=== PATIENT | male | born 1995 | race Two or more races ===

== ENCOUNTER 2019-11-18 23:02 | Emergency (ER) | payer MEDICAID ==
[~2019-11-18] VITALS: Ht 190.5 cm; Wt 74.8 kg
[2019-11-19 00:22] VITALS: BP 125/73
== END 2019-11-19 01:39 | disposition home or self-care (01) ==
LOC: ER 23:02 → EDBD 23:02 → ER 11-19 01:39
DX: S06.0X1A Concussion with loss of consciousness of 30 minutes or less, initial encounter (principal); M25.512 Pain in left shoulder; M25.522 Pain in left elbow; M54.2 Cervicalgia; X58.XXXA Exposure to other specified factors, initial encounter; Y93.23 Activity, snow (alpine) (downhill) skiing, snowboarding, sledding, tobogganing and snow tubing; Y92.89 Other specified places as the place of occurrence of the external cause; Y99.8 Other external cause status
CPT/HCPCS: 70450; 72125; 73000; 73030; 73070